=== PATIENT | male | born 1945 ===

== ENCOUNTER → 2024-02-22 12:55 | Outpatient (REF) | payer MEDICARE, SELFPAY | LOC: RCS 12:55 | PROVIDERS: ATTENDING PHYSICIAN Internal Medicine Geriatric Medicine | DX: Z00.00 Encounter for general adult medical examination without abnormal findings (principal); E78.2 Mixed hyperlipidemia; I10 Essential (primary) hypertension; I25.10 Atherosclerotic heart disease of native coronary artery without angina pectoris; E55.9 Vitamin D deficiency, unspecified | CPT/HCPCS: 93017; 93350 ==

== ENCOUNTER 2024-02-25 18:13 | Inpatient (IN) | payer MEDICARE, SELFPAY ==
[2024-02-25 13:40] VITALS: BP 153/88
[2024-02-25 14:06] LABS: % Basophils 0.6 % (0-2); % Eosinophils 1.9 % (0-6); % Immature Granulocytes 0.1 % (0-0.5); % Lymphocytes 21.8 % (20.5-51.1); % Monocytes 8.9 % (1.7-9.3); % Neutrophils 66.7 % (42.2-75.2); Absolute Basophils 0.1 10^3/uL (0-0.2); Absolute Eosinophils 0.2 10^3/uL (0-0.7); Absolute Lymphocytes 1.7 10^3/uL (1.2-3.4); Absolute Monocytes 0.7 10^3/uL (0.1-0.6); Absolute Neutrophils 5.2 10^3/uL (1.4-6.5); Hematocrit 38.9 % (39.0-52.0); Hemoglobin 12.9 g/dL (13.0-18.0); Mean Corp Hgb Conc. 33.2 g/dL (33.0-37.0); Mean Corpuscular Hgb 29.4 pg (27.0-31.0); Mean Corpuscular Volume 88.6 fL (80.0-94.0); Mean Platelet Volume 10.3 fL (7.4-10.4); Nucleated Red Blood Cells % 0 % (-); Platelet Count 256 10^3/uL (130-400); Red Blood Cell Count 4.39 10^6/uL (4.70-6.10); Red Cell Dist. Width 16.1 % (11.5-14.5); White Blood Cell Count 7.8 10^3/uL (4.8-10.8)
[2024-02-25 14:19] LABS: Blood Urea Nitrogen 18 mg/dl (9-20); Glucose 101 mg/dl (70-99); Potassium 4.4 mmol/L (3.5-5.1); Sodium 137 mmol/L (135-145); eGFR > 60.00
[2024-02-25 14:20] LABS: ALT (SGPT) 20 U/L (0-50); AST (SGOT) 25 U/L (17-59); Albumin 4.1 g/dl (3.5-5.0); Alkaline Phosphatase 84 U/L (38-126); Calcium 9.3 mg/dl (8.4-10.2); Carbon Dioxide 27 mmol/L (22-30); Chloride 101 mmol/L (98-107); Total Bilirubin 0.7 mg/dl (0.2-1.3); Total Protein 6.6 g/dl (6.3-8.2)
[2024-02-25 14:31] LABS: Troponin I < 0.012 ng/ml
--- NOTE | 2024-02-25 15:37 | ED.GENMED ---
History of Present Illness
General
Chief Complaint: Chest Pain
Source: patient
Exam Limitations: none
Time Seen by Provider: 02/25/24 15:17
Nursing documentation reviewed up to this point in time: agreed with
History of Present Illness
History of Present Illness:
Patient is a 78-year-old male with history CAD s/p 2 stents, hypertension, hyperlipidemia presenting to the emergency department after abnormal stress test. Patient states that he has had intermittent exertional chest tightness over the past 2
weeks which she feels is slowly worsening. He reports a tightness sensation in his mid chest with occasional radiation to his left arm and sometimes into his back. No associated shortness of breath or diaphoresis. No nausea or vomiting. He did
have a stress echocardiogram performed at [facility] 4 days ago which was found to be abnormal. He was contacted by his process operator, who is at [facility], who recommended that patient present to the emergency department.
Patient does have a history of 2 stent placements which felt somewhat similar. These were both performed at [facility].
At this time�patient has a mild tightness in his mid chest. Otherwise he feels well.
Review of Systems
Review of Systems
Allergies reviewed?: Yes
All Other Systems: ROS reviewed and negative except as documented in HPI and ROS
Phy Exam
Physical Exam
Physical Exam:
Vitals: Hypertensive, otherwise stable vital signs. Afebrile
General: Patient is well appearing, no acute distress. Nontoxic appearing
Skin: Warm and dry, no rashes or lesions
Head: Normocephalic, atraumatic
Eyes: Sclera nonicteric. EOMs intact. No nystagmus.
Throat: Protecting airway
Neck: Normal ROM, no cervical spine tenderness, no meningismus. No JVD
Cardiac: Regular rate and rhythm, no murmurs. No reproducible chest wall tenderness
Pulm: Normal respiratory effort, no wheezes, rales, rhonchi heard on exam. O2 saturation 98 on room air
Abdomen: Abdomen soft. No abdominal tenderness.
Extremities: No evidence of cyanosis or edema
Neuro: AAOx3. Grossly intact.
Psychiatric: Normal affect.
Scores
Heart Score for Chest Pain Patients
STEMI patient?: No
History: Moderately Suspicious
ECG: Nonspecific Repolarization
Age: >/= 65 years
Risk Factors: >/= 3 Risk Factors or History of CAD
Troponin: </= Normal Limit
Heart Score for Chest Pain Patients: 6
Heart Score Risk: 20.3% MACE over next 6 weeks
Course
Orders/Labs/Results
Orders:
Orders
02/25/24 13:35
Electrocardiogram (*1) Urgent
Reason for Study: Chest Pain
EKG- Treatment ONCE
02/25/24 13:45
CXR2 [CR Chest - 2 Views ] Urgent
Comment:
Reason For Exam: cheast discomfort x3 wks
02/25/24 13:49
Comprehensive Metabolic Panel Urgent
Troponin I Urgent
02/25/24 13:50
Complete Blood Count/With Diff Urgent
02/25/24 Dinner
Cholesterol Lowering
At Your Request: Full Participation
02/25/24 15:35
Nitroglycerin Sublingual [Nitrostat (Sublingual)] 0.4 mg SL NOW STA
02/25/24 16:07
CARDIOLOGY CONSULT Urgent
Consulting Provider: Moe Malik
Was physician already notified: Yes
02/25/24 16:46
Heparin 4,000 units IV NOW STA
Nursing to Place Non Medication Order As Directed
Physician Order: PTT 6 hours after initial start of Heparin infusion
Above order entered?: Yes
02/25/24 17:00
Heparin 46580 Units/250 ml 25,000 units in 250 ml IV PER PROTOCOL
Weight to be used for heparin protocol in kilograms (kg):: 99.79
Protocol:: Cardiac Tx/Acute Coronary
PTT Goal Range to be used:: PTT 73 to 111 seconds
Order type:: Initial
INITIAL Infusion Dose (UNITS/KG/hr) & then follow protocol:: 12 units/kg/hr
Infusion Dose in UNITS/hr & then follow protocol (UNITS/hr):: 1,000
INFUSION RATE in mL/hr & then follow protocol (mL/hr):: 10
PTT less than or equal to 64 seconds:: Increase rate by 200 units/hr (+ 2 mL/hr)
PTT 64.1 to 72.9 seconds:: Increase rate by 100 units/hr (+ 1 mL/hr)
PTT 73 to 111 seconds:: Target Range. No change in rate.
PTT 111.1 to 130.9 seconds:: Decrease rate by 100 units/hr (- 1 mL/hr)
PTT 131 to 199.9 seconds:: HOLD for 1 hr. Then decrease rate by 200 units/hr (- 2 mL/hr)
PTT greater than or equal to 200 seconds:: HOLD for 2 hrs & Notify Provider. Then decrease by 200 units/hr (-
2 mL/hr)
Lab follow-up:: Each change, PTT q6h until 2 consecutive are therapeutic. Then PTT
daily.
02/25/24 17:06
Aspirin Chewable [Low Strength Aspirin] 243 mg PO NOW STA
02/25/24 17:17
Admit/Transfer Patient As Directed
Co-Sign Provider:
Level of Care: Inpatient admission
Assign to:: IVU
Physician / Group: Dr. Malik
Diagnosis: USA
Reason for Hospitalization: USA
Expected length of stay greater than two midnights?: Yes
ELOS- Estimated Length of Stay in days: 3
I certify the patient meets the requirements for IP care: Yes
02/25/24 17:34
PTT Urgent
Comment: Obtain baseline before beginning heparin infusion if not already collected
02/25/24 20:25
Electrocardiogram (*1) Q6H
Reason for Study: Chest Pain
Comment: at admission and Q3H for total of 3, to be done with each troponin
Nitroglycerin Sublingual [Nitrostat (Sublingual)] 0.4 mg SL [id number] PRN
02/25/24 20:25
Case Management Consult ONCE
Case Management Consult: Discharge Planning
Activity As Directed
Activity Level: Bedrest
INT (Intravenous Needle Therapy) As Directed
Comment: maintain peripheral IV access
Intake/ Output As Directed
Frequency: Per unit guidelines
Vital Signs As Directed
Frequency: q4h
Weight As Directed
Frequency: Once
02/25/24 21:24
Glycohemoglobin (HgbA1c) Routine
Troponin I Q6H
Comment: at admit & Q3H for 3 total including ED draws, obtain ECG with each level
02/26/24 02:39
Troponin I Q6H
Comment: at admit & Q3H for 3 total including ED draws, obtain ECG with each level
02/26/24 04:37
Basic Metabolic Panel IN AM
Cardiovascular Evaluation IN AM
Complete Blood Count/No Diff IN AM
02/26/24 Breakfast
NPO
Allow oral meds: Yes
Allow clear liquids: No
02/26/24 08:00
Aspirin Chewable [Low Strength Aspirin] 81 mg PO DAILY
Atorvastatin [Lipitor] 80 mg PO DAILY
Multivitamin [Theragran] 1 tablet PO DAILY
Ramipril [Altace] 5 mg PO DAILY
Abnormal Lab Results
02/25/24 02/25/24
13:49 13:50
RBC 4.39 L 10^6/uL
(4.70-6.10)
Hgb 12.9 L g/dL
(13.0-18.0)
Hct 38.9 L %
(39.0-52.0)
RDW 16.1 H %
(11.5-14.5)
Absolute Monos (auto) 0.7 H 10^3/uL
(0.1-0.6)
Glucose 101 H mg/dl
(70-99)
02/25/24 13:50
02/25/24 13:49
Vital Signs
Initial and Last Documented VS:
Initial Vital Signs
Temp Pulse Resp BP Pulse Ox
98.0 F 72 16 153/88 98
02/25/24 13:40 02/25/24 13:40 02/25/24 13:40 02/25/24 13:40 02/25/24 13:40
Last Documented Vital Signs
Temp Pulse Resp BP Pulse Ox
97.6 F 76 18 155/114 98
02/26/24 17:04 02/26/24 18:00 02/26/24 17:04 02/26/24 18:00 02/26/24 17:45
MDM/Problems Addressed
Differential Diagnosis Includes:
Not limited to: Acute coronary syndrome, parotitis, myocarditis, pneumonia, CHF, etc.
MDM/Problems Addressed:
78-year-old male with known history CAD sent in by process operator at [facility] after abnormal cardiac stress echocardiogram. Intermittent, mild exertional chest tightness over the past few weeks. No shortness of breath, diaphoresis. Sent in by
process operator for cardiac catheterization. Patient mildly hypertensive, otherwise stable vital signs. On exam�patient is well-appearing, in no apparent distress. Heart regular rate and rhythm. Lungs clear bilaterally. No lower leg edema. EKG
obtained in triage shows normal sinus rhythm with some nonspecific T wave abnormalities in the lateral leads. Labs noted. No clinically significant abnormalities. Troponin is undetectable. Chest x-ray without acute abnormalities. Given
patient's mild discomfort�will give 1 sublingual nitro and reassess. Did send mentions to process operator and placed consult.
Update 4:45 PM: Into reassess patient at bedside. Chest pain completely resolved after 1 sublingual nitroglycerin. He has remained stable. Store Standards Associate did come down and assessed patient. They will plan to admit for unstable angina and cardiac
catheterization tomorrow. Will start heparin. Patient accepted to cardiology service in stable condition.
Chronic conditions affecting care:
CAD, hypertension, hyperlipidemia
Acute Exacerbation and/or Progression of Chronic Illness:
Acutely hypertensive
*Radiology
Radiology exam reviewed: radiology read reviewed
*Pulse Oximetry
Patient hypoxic: no
*EKG
Interpreted by ED Provider?: Yes
EKG Intrepretation Date: 02/25/24
Interpretation: abnormal
Comparison EKG: changes noted
Heart Rate: 72
Rate: normal
Rhythm: sinus
Mico: normal axis
Interval: normal interval
QRS Pattern: normal QRS
Ischemia: non-specific ST changes (T wave changes in lateral leads)
*Occupational Hygienist Interpretation
Rate: Occupational Hygienist- N/A
*Critical Care Note
Total Time (30-74mins, 75-104mins- exclusive of procedures): Not Applicable
Data Reviewed
Review of Other/Old Records Reveals: Testing (Cardiac stress echocardiogram performed on 02/22/2024-positive for ischemia)
Patient Management
Discussion with other providers: Rn Placement (Cardiology-Dr. Malik)
Escalation/DeEscalation of care consider admission/obs:
Will admit stable angina�plan for cardiac catheterization tomorrow
ED Attending Note
-
Portions of this chart may have been created with voice recognition software.� Occasional wrong word or��sound alike� substitutions may have occurred due to the inherent limitations of voice recognition software.
Discharge Plan
Departure
Patient Disposition: Admit
Date of Disposition: 02/25/24
Time of Disposition: 17:07
Admit to doctor: Dr. Malik
Presentation/result/management discussed w/ accepting MD/DO: Cardiology
Discharge Problem:
Unstable angina
Interventions
Interventions:
*Risk Screen - Suicide Last Done: 02/25/24 13:40
*General Assessment Last Done: 02/25/24 15:45
*Neglect/Abuse Screening Last Done: 02/25/24 13:40
ED- Fall Risk Assessment Last Done: 02/25/24 15:45
*ED COVID-19 Vaccine History Last Done: 02/26/24 07:50
ED- Cardiac Assessment Last Done: 02/25/24 19:02
[2024-02-25 16:25] VITALS: BMI 29.9
[2024-02-25] MEDS: NITROSTAT (SUBLINGUAL) 0.4 MG SL (16:30)
[2024-02-25 16:32] VITALS: BP 155/83
[2024-02-25 16:34] VITALS: BP 133/84
--- NOTE | 2024-02-25 17:03 | HPS.HSE ---
Addendum entered and electronically signed by Moe Malik MD 02/25/24 18:35:
78 yo male with PMH of CAD, prior stenting 2017 (see below) is admitted with chest pain. Had recent moderate risk stress echo, and chest pain continued, so sent to ED. Currently chest pain free after nitroglycerin. Exam with RRR, no murmurs, no
edema. TnI <0.012. EKG with NSR, nonspecific T wave abnormality.
Admit with ACS/unstable angina. Plan for cath in AM.
ASA 324mg and heparin drip.
Discussed with primary ticket maker on phone and interventional cardiology.
Original Note:
Family Physician
-
Family Physician: Tom Hansen
Chief Complaint
-
chest discomfort
History of Present Illness
78 y/o male (patient of Dr. Ramirez Cricket) with CAD with hx stenting, HTN, and HLD who was sent in by his ticket maker due to reports of worsening chest discomfort. Briefly, over the past 3 weeks he has noted chest discomfort with exertion. He had
an abnormal stress test as noted below. His exercise tolerance has decreased. He was recommended to come to the ER. He had CP on arrival, but resolved with nitro and he is now CP free. He is in no distress at the time of my assessment.
Medical History
Past Medical History
Past Medical History: Reports CAD, HTN and Hypercholesterolemia
Past Surgical History: Reports Other (cardiac cath and stenting as noted)
Social History
Tobacco: Non-smoker
Family History
Family History: Not pertinent
Allergies / Home Medications
Allergies reflects when Allergies were last updated in [facility].
Home Medications with original date entered in [facility] [employer]
Allergy/Medication List:
sulfa and PCN- allergies
Home meds:
Ramipril 5 mg po daily
ASA 81 mg PO daily
atorvastatin 80 mg PO daily
mens total health supplement
Review of Systems
-
History Source: Patient
A 12 point ROS was completed and negative except as noted: Yes
Constitutional: Reports Other (decreased exercise tolerance)
Cardiac: Reports Chest Pain
Physical Exam
Vital Signs
Vital Signs
Temp Pulse Resp BP Pulse Ox
98.0 F 74 20 155/83 98
02/25/24 13:40 02/25/24 16:32 02/25/24 16:32 02/25/24 16:32 02/25/24 16:32
Physical Exam
General: Well Developed, Well Nourished and No Apparent Distress
HEENT: NormoCephalic and Anicteric
Respiratory: Clear and Non Labored Respirations
Cardiac: Regular Rhythm
Skin: Warm and Dry
Neuro: AO x 3
Psych: Calm
Laboratory Results
-
02/25/24 13:50
02/25/24 13:49
Laboratory Results
Total Bilirubin 0.7 mg/dl (0.2-1.3) 02/25/24 13:49
AST 25 U/L (17-59) 02/25/24 13:49
ALT 20 U/L (0-50) 02/25/24 13:49
Alkaline Phosphatase 84 U/L (38-126) 02/25/24 13:49
Troponin I < 0.012 ng/ml 02/25/24 13:49
Data Reviewed
-
Diagnostic Radiology: Report Reviewed by me (CXR: No active cardiopulmonary disease.)
Medical Tests (Nuc Med, Echo, EKG etc): Report Reviewed by me (Stress echo 02/22/24: Stress Echocardiogram with normal hemodynamic response to the level of exercise achieved only achieving 5.5 METs. ECG positive for ischemia by criteria. Poor
exercise capacity. Chest tightness (2/10) at peak and upper back pain reported in recovery. At least moderate risk. )
Lab Data: Labs Reviewed by me
Impression/Plan
-
IMPRESSION/PLAN:
Unstable angina:
-this diagnosis is threat to life
-give full dose ASA (already took 1 baby asa today, will give 3 more), then continue baby aspirin daily
-start heparin drip, which requires intensive monitoring
-cath tomorrow
-nitro as needed
CAD with hx stenting:
-Cardiac cath 12/31/2016: Single vessel CAD with significant proximal circumflex stenosis and mid circumflex occlusion. The LAD stent placed in 2009 remains widely patent. Successful stenting of mid circumflex chronic total occlusion using 3.5 x
16 Promus PAYTON. Successful stenting of 60-70% proximal circumflex stenosis using 4.0 Promus PAYTON. Successful stenting of 60% OM3 lesion using 2.5x 16 Promus PAYTON.
-continue ASA, statin. Cath as above.
HTN:
-continue ACEI and monitor
HLD:
-continue statin and check lipids
[2024-02-25] MEDS: LOW STRENGTH ASPIRIN 243 MG PO (17:33)
[2024-02-25 18:08] LABS: APTT 25.1 Sec (23.4-35.0)
[2024-02-25] MEDS: HEPARIN 4000 UNITS IV (18:12)
[2024-02-25] MEDS: HEPARIN 25000 UNITS/250 ML IV (18:13)
[2024-02-25 18:18] VITALS: BP 139/75
[2024-02-25 19:01] VITALS: BP 162/95
[2024-02-25 21:55] LABS: Troponin I < 0.012 ng/ml
[2024-02-25 22:25] VITALS: BP 126/69
[2024-02-26] VITALS (11 sets, daily range): BP systolic 124–172; BP diastolic 69–114
[2024-02-26 00:52] LABS: APTT 143.8 Sec (23.4-35.0)
[2024-02-26 03:19] LABS: Troponin I < 0.012 ng/ml
[2024-02-26 05:00] LABS: Hematocrit 40.4 % (39.0-52.0); Hemoglobin 13.4 g/dL (13.0-18.0); Mean Corp Hgb Conc. 33.2 g/dL (33.0-37.0); Mean Corpuscular Hgb 29.3 pg (27.0-31.0); Mean Corpuscular Volume 88.2 fL (80.0-94.0); Mean Platelet Volume 10.3 fL (7.4-10.4); Platelet Count 254 10^3/uL (130-400); Red Blood Cell Count 4.58 10^6/uL (4.70-6.10); Red Cell Dist. Width 16.2 % (11.5-14.5); White Blood Cell Count 8.5 10^3/uL (4.8-10.8)
[2024-02-26 05:22] LABS: Blood Urea Nitrogen 20 mg/dl (9-20); Calcium 9.7 mg/dl (8.4-10.2); Carbon Dioxide 29 mmol/L (22-30); Chloride 101 mmol/L (98-107); Estimated Creatinine Clearance 86 ml/min; Glucose 98 mg/dl (70-99); HDL Cholesterol 43 mg/dl; LDL Cholesterol, Calculated 97 mg/dl; Magnesium 2.2 mg/dl (1.6-2.3); Potassium 4.6 mmol/L (3.5-5.1); Sodium 140 mmol/L (135-145); Total Cholesterol 161 mg/dl (50-199); Triglyceride 107 mg/dl (10-149); Very Low Density Lipoprotein 21 mg/dl (0-30); eGFR > 60.00
[2024-02-26] MEDS: LOW STRENGTH ASPIRIN 81 MG PO (07:55)
[2024-02-26] MEDS: LIPITOR 80 MG PO (07:55)
[2024-02-26] MEDS: THERAGRAN 1 TABLET PO (07:55)
[2024-02-26] MEDS: ALTACE 5 MG PO (09:24)
[2024-02-26 10:39] LABS: Glycohemoglobin (HgbA1c) 6.4 % (4.0-5.6)
[2024-02-26 13:18] LABS: APTT 52.2 Sec (23.4-35.0)
--- NOTE | 2024-02-26 15:22 | PTCARENOTE ---
report given to quality assurance/r&d lab technician rn. pt transported to quality assurance/r&d lab technician #3 w/o issue.
[2024-02-26 16:23] LABS: ACT-LR - POC 279 Seconds (116-155)
--- NOTE | 2024-02-26 16:52 | CM ---
Pricing on Farxiga 10mg daily through the patient's prescription plan is $594 for a 30 day supply. Patient has a $590 deductible to meet first. Patient's prescription plan can not give me the estimated copay after he meets his deductible.
Jardiance 10mg is covered at $592 for a 30 day supply. Patient has a $590 deductible to meet first. Patient's prescription plan can not give me the estimated copay after he meets his deductible.
Brilinta 90mg BID is covered at $445 for a 30 day. Patient has a $590 deductible to meet first. Patient's prescription plan can not give me the estimated copay after he meets his deductible.
Brilinta is not in stock at the patient's [facility] and it will not be in until Thursday, if it is called in today.
--- NOTE | 2024-02-26 16:54 | W.DS.TRANS ---
DC Summary - Sandwich Counter Attendant
-
Discharge Instructions:
Discharge Diagnosis/Procedures Cardiac catheterization
Diet Low Cholesterol
Driving Restrictions No driving for 24 hours
Instructions:
Stand-Alone Forms: DC Instructions- Cath/EP Lab
Changes to Home Medications: No
Discharge Medications:
DC Medications w/original date entered in [facility] [employer]
ramipril 5 mg capsule 5 mg PO DAILY 02/22/09
aspirin 81 mg chewable tablet 81 mg PO DAILY 12/31/16
atorvastatin 80 mg tablet (Lipitor) 80 mg PO DAILY 02/25/24
therapeutic multivitamin 1 tab PO DAILY 02/25/24
Home Medication Changes
Pending Results: No
[2024-02-26] MEDS: CRESTOR 40 MG PO (18:21)
--- NOTE | 2024-02-26 18:37 | PTCARENOTE ---
Pt received post cardiac cath done via right radial artery. Radial band in place, removing air per protocol without problem. Pt denies any discomfort, dinner eaten, pt voiding. Telemetry shows sinus rhythm with some bigeminy. Activity restrictions
reviewed with pt. Plan to discharge him tonight if radial site is stable.
--- NOTE | 2024-02-26 19:18 | ITS.CL.PN ---
Clinical Study Manager - Procedure Note
Procedure
Procedure Note:
CARDIAC CATHETERIZATION REPORT
Date of Procedure: 02-26-2024
Referring: Dr. Abram Malik MD
Indication: Acute coronary syndrome, positive cardiac stress test
PROCEDURE(S)
1. left heart catheterization
2. coronary angiography
3. iFR of LAD
ACCESS: 6F right radial artery (closure: radial band)
CATHETERS
1. 6F JR4
2. 6F JL3.5
3. 6F EBU3.5 guide
MODERATE SEDATION: 27 minutes of moderate sedation was utilized. An independent medical case manager was present to assist with and help manage the patient's level of consciousness and physiologic status.
ULTRASOUND GUIDED VASCULAR ACCESS (right radial artery): Ultrasound was utilized for vascular access. The vessel was visualized under ultrasound and noted to be patent. An image of the vessel was stored permanently in the patient's medical record.
Under direct ultrasound guidance, vascular access was obtained using a modified Seldinger technique and a 6 Upper Sorbian sheath was placed.
HEMODYNAMIC DATA
LV 111/7 (EDP 10) mmHg
AO 117/68 (mean 92) mmHg
CORONARY ANGIOGRAPHY
Dominance: Right
LM: Large and normal
LAD: Large vessel giving rise to a moderate caliber D1, moderate caliber D2, and wrapping around the apex. There is a focal area of moderate ISR and an otherwise patent proximal LAD stent. The ostium of the D1 is moderately diseased but has normal
flow.
LCx: Large vessel giving rise to a single large branching OM1. There are patent stents in the proximal to mid left circumflex. There is otherwise mild nonobstructive disease.
RCA: Large vessel giving rise to a moderate caliber RPDA, moderate caliber RPL1, and small RPL2. There are trivial luminal irregularities.
iFR of LAD
An Omni wire was flushed and zeroed outside the body and then advanced to the left main. The wire introducer was removed and the catheter flushed with saline, after which pressure of the wire and guide were normalized. The wire was advanced to the
mid LAD and iFR recorded at 0.93. On return to the left main, iFR appropriately normalized to ~1.0, confirming lack of wire drift.
RADIATION: dose 473 mGy; DAP 27.1 Gy*cm2; fluoroscopy time 5.4 min
CONCLUSIONS
1. Nonobstructive coronary artery disease in a right dominant system with iFR negative focal ISR of a prior LAD stent.
2. Normal LV filling pressure and no aortic stenosis
RECOMMENDATIONS
1. expectant management after cardiac catheterization via right radial artery approach
2. continue aggressive secondary prevention of coronary artery disease
Copy to: Dr. Monet Ramirez MD (housecalls nurse); Dr. Tom Hansen MD (PCP)
Signed: Jermaine Chino MD, PhD
--- NOTE | 2024-02-26 21:18 | PTCARENOTE ---
TR band removed at 20:20 without any complications, dry dressing applied. Patient educated on activity restrictions and verbalized understanding. Tele monitor shows SR, VSS. Patient sating 97-98% on RA, lungs clear throughout. Ambulating self in
room without difficulty. Reviewed with patient discharge paperwork, medications, and activity restrictions. Patient verbalized understanding, and to make follow up appointments. IVs removed and documented. All personal belongings sent with patient.
Patient escorted out by PCT via WC, and patients two friends.
--- NOTE | 2024-02-29 16:56 | CM ---
pt indep, lives with is marko 2 story home, no dc planning needs noted.
== END 2024-02-26 21:00 | disposition home or self-care (01) | DRG 287 ==
LOC: IVU 18:13
PROVIDERS: Nurse Practitioner; Physician Assistant; Student in an Organized Health Care Education/Training Program; ADMITTING PHYSICIAN Internal Medicine; EMERGENCY PHYSICIAN Emergency Medicine; FAMILY PHYSICIAN Internal Medicine Geriatric Medicine
PROC: 4A023N7 Measurement of Cardiac Sampling and Pressure, Left Heart, Percutaneous Approach (ICD-10-PCS; 2024-02-26)
PROC: 4A033BC Measurement of Arterial Pressure, Coronary, Percutaneous Approach (ICD-10-PCS; 2024-02-26)
PROC: B2111ZZ Fluoroscopy of Multiple Coronary Arteries using Low Osmolar Contrast (ICD-10-PCS; 2024-02-26)
DX: I24.9 Acute ischemic heart disease, unspecified (principal); I25.110 Atherosclerotic heart disease of native coronary artery with unstable angina pectoris; I10 Essential (primary) hypertension; E78.00 Pure hypercholesterolemia, unspecified; Z95.5 Presence of coronary angioplasty implant and graft; Z79.82 Long term (current) use of aspirin; Z88.0 Allergy status to penicillin; Z88.2 Allergy status to sulfonamides
CPT/HCPCS: 93017; 71046; 76937; 80048; 80053; 80061; 83036; 83735; 84484; 85025; 85027; 85347; 85730; 93005; 93306; 93458; 93799; 99152; 99285; C1769; C1894; Q9967